=== PATIENT | male | born 1945 | race Caucasian/White ===

== ENCOUNTER 2017-02-04 22:17 | Emergency (ER) | payer OTHER ==
[2017-02-04 22:34] VITALS: BMI 25.7
[2017-02-04] MEDS ORDERED: LIDOCAINE 1%/EPI 1:100000 (50 ML MULTI DOSE VIAL) ONE (22:39)
[2017-02-04] MEDS ORDERED: TETANUS IMMUNE GLOBULIN 250 UNITS DISP.SYRIN IM ONE (23:18)
[2017-02-04] MEDS ORDERED: DIPHTH,PERTUSS(ACELL),TET 0.5 ML DISP.SYRIN IM ONE (23:20)
--- NOTE | 2017-02-04 23:28 | PDOC ---
History of Present Illness - General Chief Complaint: Injury Stated Complaint: LACERATION Time Seen by Provider: 02/04/17 22:31 - History of Present Illness Initial Comments: 02/05/17 00:14 71m with pmh of IDDM2 and HTN present to the ED with a laceration to the right distal phalanx of 3rd finger with the sharp end of a stove as he was swatting a mosquito. Site is actively bleeding. No palor, pulselessness. Appropriate cam refill. Patient is on daily aspirin 81mg. 02/05/17 00:17 Occurred: reports: just prior to arrival Past History - Past Medical History Allergies/Adverse Reactions: Allergies Allergy/AdvReac Type Severity Reaction Status Date / Time No Known Drug Allergies Allergy Verified 02/04/17 22:56 Home Medications: Ambulatory Orders Aspirin [Aspirin EC] 81 mg PO DAILY 04/09/14 Atorvastatin Ca [Lipitor] 10 mg PO HS 04/09/14 Cholecalciferol (Vitamin D3) [Vitamin D3] 2,000 unit PO DAILY 04/09/14 Lisinopril [Prinivil] 10 mg PO DAILY 04/09/14 Metformin HCl [Glucophage -] 500 mg PO BID 04/09/14 Diabetes: Yes HTN: Yes Hypercholesterolemia: Yes - Immunization History Immunization Up to Date: Yes - Psycho/Social/Smoking Cessation Hx Suicidal Ideation: No Smoking History: Never smoked Have you smoked in the past 12 months: No Information on smoking cessation initiated: No Hx Alcohol Use: No Drug/Substance Use Hx: No Substance Use Type: None Review of Systems - Review of Systems Constitutional: No: Symptoms Reported HEENTM: No: Symptoms Reported Respiratory: No: Symptoms reported Cardiac (ROS): No: Symptoms Reported ABD/GI: No: Symptoms Reported : No: Symptoms Reported Musculoskeletal: No: Symptoms Reported Integumentary: No: Symptoms Reported Neurological: No: Numbness, Paresthesia, Tingling *Physical Exam - Vital Signs Last Vital Signs Temp Pulse Resp BP Pulse Ox 98.8 F 81 16 172/95 97 02/04/17 22:30 02/04/17 22:30 02/04/17 22:30 02/04/17 22:30 02/04/17 23:01 - Physical Exam General Appearance: Yes: Nourished, Appropriately Dressed. No: Apparent Distress Comments:: 02/05/17 00:18 R 3rd finger cap refill 2sec Extremity: positive: Normal Capillary Refill (4cm laceration on Right distal phalanx of 3rd digit.) Procedures - Laceration/Wound Repair Right Distal Dorsal 3rd digit Wound Length: 2.6 to 5.0 cm Wound Explored: clean Wound's Depth, Shape: superficial, flap Irrigated w/ Saline: Yes Anesthesia: 1% Lidocaine Wound Repaired With: Sutures Suture Size/Type: 5:0 Number of Sutures: 5 Sterile Dressing Applied: Yes Medical Decision Making - Medical Decision Making 02/05/17 00:20 71M on baby aspirin presents with 4cm laceration on right 3rd finger. Given booster tetanus shot. 5 suture point + bacitracin and sterile gauze wrap. *DC/Admit/Observation/Transfer Diagnosis at time of Disposition: Finger laceration - Referrals Referrals: Zain Donovan [Primary Care Provider] - - Patient Instructions Additional Instructions: Come back to ED or to your provider to remove the sutures in 7 to 10 days. Neosporin ok.
--- NOTE | 2017-02-04 23:33 | PDOC ---
Attending Attestation - Resident Resident Name: Nick Akers - ED Attending Attestation I have performed the following: I have examined & evaluated the patient, The case was reviewed & discussed with the resident, I agree w/resident's findings & plan, Exceptions are as noted - HPI HPI: 02/04/17 23:28 71-year-old male right-hand dominant presents with left third digit superficial laceration along the distal DIP. Approximately 2 cm in length. Patient is right hand dominant. last tetanus is unknown. He is able to flex and extend all his digits. Denies any numbness or weakness. - Physicial Exam PE: 02/04/17 23:29 GENERAL: Awake, alert, and fully oriented, in no acute distress. HEAD: No signs of trauma EYES: PERRLA, EOMI, sclera anicteric, conjunctiva clear ENT: Auricles normal inspection, hearing grossly normal, nares patent, oropharynx clear without exudates. EXTREMITIES: Normal range of motion, no edema. No clubbing or cyanosis. No cords, erythema, or tenderness. NEUROLOGICAL: Cranial nerves II through XII grossly intact. Normal speech, normal gait SKIN: Warm, Dry, normal turgor, no rashes or lesions noted. 3rd left digit with ~2 cm superficial laceration. Evaluated under bloodless field. No tendon exposure. Full flexion and PIP and DIP of 3rd left digit. < 2 sec cap refil. 2+ radial pulse. - Medical Decision Making 02/04/17 23:31 Laceration repair performed by DR. Akers 5 5-0 nylon interrupted sutures placed. Bacitracin Hand elevation. Scar and wound precautions given. Return to PMD or return to the ER in 7 to 10 days for suture removal. Tetanus updated
[2017-02-04 23:58] VITALS: BP 168/89; PULSE 76; TEMP 98.6
== END 2017-02-04 23:58 | disposition home or self-care (01) ==
LOC: JER 22:17
PROC: 0HQFXZZ Repair Right Hand Skin, External Approach (ICD-10-PCS; principal; 2017-02-04)
DX: S61.212A Laceration without foreign body of right middle finger without damage to nail, initial encounter (principal); W22.03XA Walked into furniture, initial encounter; Y93.89 Activity, other specified; Y92.9 Unspecified place or not applicable
CPT/HCPCS: 90715; 99282-25; J1670